=== PATIENT | female | born 1990 | race Caucasian/White ===

== ENCOUNTER 2017-03-17 08:06 | Emergency (ER) | payer OTHER ==
[~2017-03-17] VITALS: Ht 157.5 cm; Wt 84.4 kg
[2017-03-17 08:22] VITALS: Ht 157.5 cm; Wt 84.4 kg
[2017-03-17 09:32] VITALS: BP 124/71
== END 2017-03-17 09:32 | disposition home or self-care (01) ==
LOC: ED 08:06
DX: B34.9 Viral infection, unspecified (principal)
CPT/HCPCS: J1885; J7613; J7644; Q0162

== ENCOUNTER 2018-11-27 10:54 | Emergency (ER) | payer OTHER ==
[~2018-11-27] VITALS: Ht 157.5 cm; Wt 86.8 kg
[2018-11-27 11:44] VITALS: Ht 157.5 cm; Wt 86.8 kg
[2018-11-27 14:02] VITALS: BP 113/78
== END 2018-11-27 14:02 | disposition home or self-care (01) ==
LOC: ED 10:54
DX: J03.90 Acute tonsillitis, unspecified (principal); E66.9 Obesity, unspecified; Z68.34 Body mass index [BMI] 34.0-34.9, adult; Z90.49 Acquired absence of other specified parts of digestive tract
CPT/HCPCS: J0696; J1100